=== PATIENT | male | born 1990 | race Caucasian/White ===

== ENCOUNTER 2016-10-06 18:41 | Emergency (ER) | payer OTHER ==
[~2016-10-06] VITALS: Ht 172.7 cm; Wt 122.5 kg
[~2016-10-06 18:41] MED LIST: AZTH250C PO; CEFD300C3 PO; CEPH500C PO; FLT05NA16 NSEACH; HYDR-2890 PO; NAPR-243 PO; SULF1TAB7 PO; TRM50T PO
--- NOTE | 2016-10-06 19:08 | ED Back Pain ---
General Stated Complaint: BACK PAIN Source of Information: Patient History of Present Illness Time Seen by Provider: 19:05 Initial Comments PT ARRIVES VIA POV C/O BACK PAIN FOR 3-4 MONTHS WAS AT WORK ( [place] [employer]) AND WAS ON STILTS--HEAD WAS 9' FROM GROUND AND FELL, LANDING ON HIS BACK--- 3-4 MONTHS AGO STATES HE TOLD HIS BOSS BUT STATES "THEY DIDN'T WRITE ANYTHING DOWN AND DIDN'T REPORT IT" NEVER SOUGHT CARE AT ANY TIME FOR THIS INJURY, UNTIL TODAY STATES TODAY HE WAS RUNNING WITH HIS DOGS AROUND 1400 TODAY AND HAD INCREASED PAIN IN BACK NO RADIATION OF PAIN NO PARESTHESIAS OR MOTOR DEFICITS NO DIFFICULTY WITH BOWEL OR BLADDER FUNCTION HAS BEEN TAKING IBUPROFEN 800 MG EVERY MORNING AND ANOTHER DOSE TODAY AT 1720 Other Comments NO PCP Allergies and Home Medications Allergies Coded Allergies: Penicillins (Unverified Allergy, Mild, RASH, 10/06/16) Home Medications Cyclobenzaprine HCl 10 Mg Tablet, 10 MG PO Q8H, #15 Prescribed by: DANA BELTRÁN on 10/06/162009 Naproxen 500 Mg Tablet, 500 MG PO BID, #20 Prescribed by: DANA BELTRÁN on 10/06/162009 Tramadol HCl 50 Mg Tablet, 50 MG PO Q4H, #20 Prescribed by: DANA BELTRÁN on 10/06/162009 Constitutional: no symptoms reported Respiratory: no symptoms reported Cardiovascular: no symptoms reported Gastrointestinal: no symptoms reported Genitourinary: no symptoms reported Musculoskeletal: see HPI Skin: no symptoms reported Psychiatric/Neurological: No Symptoms Reported Past Ijvpvok-[id number]-Byngbr Hx Patient Social History Recent Foreign Travel: No Contact w/Someone Who Travel: No Recent Hopitalizations: No Immunizations Up To Date Tetanus Booster (TDap): Unknown Surgeries HX Surgeries: No Respiratory Hx 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) Respiratory Disorders: Asthma Cardiovascular Hx Cardiac Disorders: No Neurological Hx Neurological Disorders: Yes Reproductive System Hx Reproductive Disorders: No Sexually Transmitted Disease: No Genitourinary Hx Genitourinary Disorders: No Gastrointestinal Hx Gastrointestinal Disorders: No Musculoskeletal Hx Musculoskeletal Disorders: No Endocrine Hx Endocrine Disorders: No HEENT HX ENT Disorders: No Cancer Hx Cancer: No Psychosocial Hx Psychiatric Problems: No Blood Transfusions Hx Blood Disorders: No Physical Exam Vital Signs Vital Sign - Last 12Hours 10/06/16 19:09 Temp 97.8 Pulse 86 Resp 16 B/P (MAP) 147/92 O2 Delivery Room Air Capillary Refill : General Appearance: No Apparent Distress, WD/WN, Other (AMBULATES UPRIGHT BUT SLOWLY) Neck: Full Range of Motion, Normal Inspection, Non Tender, Supple Cardiovascular: Regular Rate, Rhythm, No Edema, No JVD, No Murmur, Normal Peripheral Pulses Respiratory: Chest Non Tender, Normal Breath Sounds, No Accessory Muscle Use, No Respiratory Distress Gastrointestinal: Normal Bowel Sounds, No Organomegaly, No Pulsatile Mass, Non Tender, Soft Back: No CVA Tenderness, Decreased Range of Motion, Muscle Spasm, Vertebral Tenderness, Other (LUMBAR TENDERNESS AND SPASMS) Extremity: Normal Capillary Refill, Normal Inspection, Normal Range of Motion, Non Tender, No Calf Tenderness, No Pedal Edema, Other (DTR'S INTACT) Neurologic/Psychiatric: Alert, Oriented x3, No Motor/Sensory Deficits, Normal 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, 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 Norm as Tested Skin: Normal Color, Warm/Dry Progress/Results/Core Measures Results/Orders Lab Results Laboratory Tests Test 10/06/16 19:05 Range/Units Urine Color YELLOW Urine Clarity CLEAR Urine pH 5 5-9 Urine Specific [place] 1.025 H 1.016-1.022 Urine Protein NEGATIVE NEGATIVE Urine Glucose (UA) NEGATIVE NEGATIVE Urine Ketones NEGATIVE NEGATIVE Urine Nitrite NEGATIVE NEGATIVE Urine Bilirubin NEGATIVE NEGATIVE Urine Urobilinogen NORMAL NORMAL MG/DL Urine Leukocyte Esterase NEGATIVE NEGATIVE Urine RBC (Auto) NEGATIVE NEGATIVE Urine RBC NONE /HPF Urine WBC RARE /HPF Urine Squamous Epithelial Cells RARE /HPF Urine Crystals NONE /LPF Urine Bacteria NEGATIVE /HPF Urine Casts NONE /LPF Urine Mucus NEGATIVE /LPF Urine Culture Indicated NO Urine Opiates Screen NEGATIVE NEGATIVE Urine Oxycodone Screen NEGATIVE NEGATIVE Urine Methadone Screen NEGATIVE NEGATIVE Urine Propoxyphene Screen NEGATIVE NEGATIVE Urine Barbiturates Screen NEGATIVE NEGATIVE Ur Tricyclic Antidepressants Screen NEGATIVE NEGATIVE Urine Phencyclidine Screen NEGATIVE NEGATIVE Urine Amphetamines Screen NEGATIVE NEGATIVE Urine Methamphetamines Screen NEGATIVE NEGATIVE Urine Benzodiazepines Screen NEGATIVE NEGATIVE Urine Cocaine Screen NEGATIVE NEGATIVE Urine Cannabinoids Screen NEGATIVE NEGATIVE My Orders Orders - DANA BELTRÁN DO Drug Screen Stat (Urine) (10/06/16 19:04) Ua Culture If Indicated (10/06/16 19:04) Ct Thoracic/Lumbar Spine Wo (10/06/16 19:04) Rx-Cyclobenzaprine Tablet (Rx-Flexeril T (10/06/16 20:15) Rx-Naproxen (Rx-Naprosyn) (10/06/16 20:15) Rx-Tramadol Hcl (Rx-Ultram) (10/06/16 20:15) Vital Signs/I&O Vital Sign - Last 12Hours 10/06/16 19:09 Temp 97.8 Pulse 86 Resp 16 B/P (MAP) 147/92 O2 Delivery Room Air Diagnostic Imaging Comments CT THORACIC/LUMBAR SPINE--NO ACUTE PROCESS, DEGENERATIVE CHANGES L3-L5 WITH MILD TO MODERATE CANAL NARROWING--PER RADIOLOGIST REPORT @ 2006 Reviewed: Reviewed by Me Departure Impression Impression: Primary Impression: Low back pain Additional Impression: DEGENERATIVE CHANGES OF LUMBAR SPINE Disposition: HOME, SELF-CARE Condition: Stable Departure-Patient Inst. Referrals: NO,LOCAL PHYSICIAN (PCP/Family) Primary Care Physician Patient Instructions: Low Back Pain (DC) Add. 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 NO TWISTING OR BENDING AT WAIST UNTIL RELEASED BY DANA MCKEON DO October 06, 2016 19:08
[2016-10-06 19:15] LABS: BILIRUBIN,URINE NEGATIVE (NEGATIVE); KETONES,URINE NEGATIVE (NEGATIVE); LEUKOCYTE ESTERASE ,URINE NEGATIVE (NEGATIVE); NITRITE,URINE NEGATIVE (NEGATIVE); PH,URINE 5 (5-9); PROTEIN,URINE NEGATIVE (NEGATIVE); UROBILINOGEN,URINE NORMAL (NORMAL)
[2016-10-06 19:22] LABS: SQUAMOUS EPITHELIAL CELL,UR RARE /HPF; WBC,URINE RARE /HPF
--- NOTE | 2016-10-06 20:02 | Diagnostic Imaging Report ---
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 Exam: Axial CT scan of the thoracic and lumbar spine performed without IV contrast. Sagittal and coronal reformations were performed. Bone and soft tissue windows were created. Comparison: None. Findings: There is a transitional lumbosacral vertebra which will be designated as a partially sacralized S1 vertebral body with a small L5-S1 rudimentary disc. There is no evidence of acute fracture of the thoracic or lumbar spine. The vertebral body heights and intervertebral disc heights are within normal limits. There are small chronic Schmorl's nodes seen involving the lower thoracic spine. There is no gross significant bony central spinal canal or neural foramen narrowing. There is streak artifact obscuring the upper thoracic and lower cervical spine regions. There are small spurs posteriorly at the L3-L4 and L4-L5 levels with at least mild central canal narrowing. There is a least moderate bilateral L4-L5 neural foramen narrowing and mild to moderate bilateral L3-L4 neural foramen narrowing. Impression: 1: There is no acute thoracic spine and lumbar spine fracture or dislocation. 2: There is a transitional lumbosacral vertebra which we designated as the L5 vertebra. There is a small L5-S1 rudimentary disc. 3: There is degenerative disease of the lower lumbar spine with neural foramen narrowing involving the L3-L4 and L4-L5 levels. If there is concern for radiculopathy or disc herniation, nonemergent MRI of the lumbar spine would better evaluate. Dictated by: Dictated on workstation # [id number]
[2016-10-06] MEDS ORDERED: TRAM-42 PO (20:10)
[2016-10-06] MEDS ORDERED: CYCL10TA9 PO (20:10)
[2016-10-06] MEDS ORDERED: NAPR500T3 PO (20:10)
[2016-10-06] MEDS ORDERED: RX-NAPROXEN (NAPROSYN) 250 MG TAB PPK#4 PO STA (20:15)
[2016-10-06] MEDS ORDERED: RX-TRAMADOL 50 MG (ULTRAM) TAB PPK#4 PO STA (20:15)
[2016-10-06] MEDS ORDERED: RX-CYCLOBENZAPRINE 10 MG (FLEXERIL) TAB PPK#3 PO STA (20:15)
[2016-10-06 20:26] VITALS: BP 145/76
== END 2016-10-06 20:27 | disposition home or self-care (01) ==
LOC: EDUNIT# 18:41 → ER 18:43
DX: M47.816 Spondylosis without myelopathy or radiculopathy, lumbar region (principal)
CPT/HCPCS: 72128; 72131; 80306; 81000; 99283

== ENCOUNTER → 2016-10-26 | Outpatient (CLI) | payer OTHER ==
[~2016-10-26] MED LIST changes: +CYCL10TA9 PO; +NAPR500T3 PO; +TRAM-42 PO
--- NOTE | 2016-10-26 16:48 | Diagnostic Imaging Report ---
INDICATION: Orbits for foreign body pre-MRI screening. FINDINGS: There are no radiopaque foreign bodies demonstrated. IMPRESSION: Negative orbits for foreign body. Dictated by: Dictated on workstation # [id number]
--- NOTE | 2016-10-26 17:33 | Diagnostic Imaging Report ---
PROCEDURE: MRI lumbar spine. TECHNIQUE: Multiplanar, multisequence MRI of the lumbar spine was performed without contrast. 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 He's been having lower back pain for six months. Patient fell off [place] stilts 4-5 months ago and pain has increased since then. Patient also has bilateral knee pain. COMPARISON STUDY: CT scan of the thoracic and lumbar spine from 10/06/2016. FINDINGS: Going by the previous dictation, there is a transitional lumbar sacral vertebrae which will be labeled as L5. No fracture or subluxation is present. The conus medullaris appears normal. T12-L1 and L1-2 levels appear normal. L2-3 level demonstrates minimal facet arthropathy. No stenosis is present. L3-4 level demonstrates mild facet arthropathy. There is a central moderate-sized disc protrusion with calcification. There is moderate central stenosis. Neural foramina appear normal. L4-5 level demonstrates mild facet arthropathy. There is a broad-based disc bulge slightly eccentric to the left with moderate central stenosis and mild narrowing of the inferior aspect of the neural foramina. The L5-S1 level demonstrates a narrow disc. The thecal sac at this level which is congenitally small. IMPRESSION: Exam demonstrates spinal stenosis at L4-5 and L3-4. Dictated by: Dictated on workstation # [id number]
== END ==
LOC: RAD 16:08
PROVIDERS: ATTEND Nurse Practitioner Family
DX: M48.06 Spinal stenosis, lumbar region (principal)
CPT/HCPCS: 70250; 72148